=== PATIENT | female | born 1990 | race American Indian/Alaskan Native ===

== ENCOUNTER 2017-07-24 12:54 | Inpatient (IN) | payer MEDICAID ==
[2017-07-24] MEDS ORDERED: SUBLIMAZE IV PRN (13:12)
[2017-07-24] MEDS ORDERED: BRETHINE IVP PRN (13:12)
[2017-07-24] MEDS ORDERED: BRETHINE SUB-Q PRN (13:12)
[2017-07-24] MEDS ORDERED: ePHEDrine SULFATE IV PRN ×2 (13:12→19:10)
[2017-07-24] MEDS ORDERED: MINERAL OIL PO PRN (13:12)
--- NOTE | 2017-07-24 13:21 | History and Physical Report ---
History of Present Illness Date of examination: 07/24/17 (sent from office for delivery) Date of admission: 07/24/17 12:54 Chief complaint: Chief Complaint / Current Status: Patient presents for OB F/U. No complaints....aharris No c/o but thinks she is in early labor. BP too high, went to triage last week. Needs to be delivered for gest HTN. I had to u/s for FHT which were found. History of present illness: EDC Confirmation: 07/27/2017 Gestational Age: 20 weeks Past History : 2 Term Births: 1 Premature Births: 0 Living Children: 1 Para: 1 Elect. Ab: 0 Spont. Ab: 0 Ectopics: 0 # 1 Delivery date: 09/06/2013 Weeks Gestation: 40 Delivery type: Vaginal Hours of labor: 12 Anesthesia type: epidural Delivery location: [facility] Sex: female weight: 7.13 Name: Raisa Past Medical History: Reviewed history from 02/27/2013 and no changes required: Negative Past Medical History Past Surgical History: Reviewed history from 02/27/2013 and no changes required: Negative Past Surgical History Past Medical History Abnormal PAP: negative ALIREZA Exposure: negative Infertility: negative Uterine Anomaly: negative Uterine Surgery (not C/S): negative Other Gynecologic Problems: negative Social Hx: no e/t/d Smoking History: Patient has never smoked. Infection History Hx of STD: none Varicella/Chicken Pox Status: Previous Disease Genetic History Congenital Heart Defect: Mom: no Dad: no Caty Disease: Mom: no Dad: no Thalassemia Mom: no Dad: no Neural Tube Defect Mom: no Dad: no Down's Syndrome Mom: no Dad: no Devon-Sachs Mom: no Dad: no Sickle Cell Disease/Trait Mom: no Dad: no Hemophilia Mom: no Dad: no Muscular Dystrophy Mom: no Dad: no Cystic Fibrosis Mom: no Dad: no Dare Chorea Mom: no Dad: no Mental Retardation Mom: no Dad: no Fragile X Mom: no Dad: no Other Genetic/Chromosomal Disorder Mom: no Dad: no Child w/other defect Mom: no Dad: no Enviromental Exposures Xray Exposure: no Medication, drug, or alcohol use since LMP: no Chemical/Other Exposure: no Exposure to Cat Liter: no Hx of Parvovirus (Fifth Disease): no Occupational Exposure to Children: none Active Medications (reviewed today): MACROBID 100 MG CAPS (NITROFURANTOIN MONOHYD MACRO) 1 bid po VITAMINS () Current Allergies (reviewed today): No known allergies Laboratory Results Routine Urinalysis Leukocytes: 3+ Nitrite: negative Urobilinogen: negative Protein: 2+ pH: 6.5 Blood: 1+ Spec. [place]: 1.015 Ketone: negative Bilirubin: negative Glucose: negative Urine HCG: positive Review of Systems General Denies fever, chills, sweats, anorexia, fatigue, weakness, malaise, weight loss and sleep disorder. Denies nausea, vomiting, headache, swelling of legs, abdominal pain, vaginal discharge, vaginal bleeding and contractions. Denies vaginal discharge, incontinence, dysuria, hematuria, urinary frequency, amenorrhea, menorrhagia, abnormal vaginal bleeding, pelvic pain, genital sores, decreased libido, painful periods, painful sex, urinary urgency, hot flashes, vaginal dryness, vaginal itching and vaginal odor. CV Denies chest pains, palpitations, syncope, dyspnea on exertion, orthopnea, PND and peripheral edema. Resp Denies cough, dyspnea at rest, excessive sputum, hemoptysis, wheezing and pleurisy. GI Denies nausea, vomiting, diarrhea, constipation, change in bowel habits, abdominal pain, melena, hematochezia, jaundice, gas/bloating, indigestion/ heartburn, dysphagia and odynophagia. Endo Denies cold intolerance, heat intolerance, polydipsia, polyphagia, polyuria and unusual weight change. Breast Denies left breast lump, right breast lump, nipple discharge, bloody discharge from nipple, breast pain, abnormal mammogram and breast enlargement. MS Denies back pain, joint pain, joint swelling, muscle cramps, muscle weakness, stiffness, arthritis, sciatica, restless legs, leg pain at night and leg pain with exertion. Derm Denies rash, itching, dryness and suspicious lesions. Neuro Denies paralysis, paresthesias, headache, seizures, tremors, vertigo, transient blindness, frequent falls, frequent headaches and difficulty walking. Psych Denies depression, anxiety, irritability and mood swings. Eyes Denies blurring, diplopia, irritation, discharge, vision loss, eye pain and photophobia. ENT Denies earache, ear discharge, tinnitus, decreased hearing, nasal congestion, nosebleeds, sore throat and hoarseness. Allergy Denies urticaria, allergic rash, hay fever and recurrent infections. Heme Denies abnormal bruising, bleeding and enlarged lymph nodes. PHYSICAL EXAM HEENT: PERRLA, normal conjunctiva, external nose and nasal mucosa normal, oropharynx clear Neck/Thyroid: supple, thyroid normal Skin no significant abnormal lesions or rashes Chest: respiratory effort normal, clear to auscultation Breasts: normal without skin changes or masses CV: regular, normal S1-S2, no murmur, no rub, no gallop Abdomen: normal bowel sounds, soft, nontender, no HSM Musculoskeletal: grossly normal ROM in joints, no joint tenderness or muscle weakness Neuro: grossly normal DTRs, sensation, strength, cranial nerves Extremities: no clubbing, cyanosis, or edema [employer] Exams Vulva/Vagina: No lesions, normal BUS, normal rugae Cervix: No lesions; no cervical motion tenderness Uterus: normal size and position, midline, mobile Fundal Ht: 20 Adnexae: no masses or tenderness Rectovaginal: no masses or tenderness Past History - Obstetrical History Expected Date of Delivery: 07/27/17 Actual Gestation: 39 Week(s) 4 Day(s) : 2 Para: 1 Hx # Term Pregnancies: 1 Number of Living Children: 1 Medications and Allergies Allergies Allergy/AdvReac Type Severity Reaction Status Date / Time No Known Allergies Allergy Verified 07/24/13 11:54 Home Medications Medication Instructions Recorded Confirmed Last Taken Type Acetaminophen/Codeine [Tylenol #3] 1 tab PO Q6H PRN #15 tab 05/21/15 Unknown Rx Cephalexin [Keflex] 500 mg PO Q6HR #20 capsule 05/21/15 Unknown Rx Ibuprofen [Motrin 800 MG tab] 800 mg PO Q8HR PRN #30 tablet 05/21/15 Unknown Rx Active Meds: Active Medications Ephedrine Sulfate (Ephedrine Sulfate) 10 mg IV Q2M PRN PRN Reason: Hypotension Stop: 07/24/17 13:17 Fentanyl (Sublimaze) 100 mcg IV Q2H PRN PRN Reason: Labor Pain Lactated Ringer's (Lactated Ringers) 1,000 mls @ 125 mls/hr IV DIRECT FERNIE Oxytocin/Sodium Chloride (Pitocin/Ns 20 Unit/1000ml Drip) 20 units in 1,000 mls @ 125 mls/hr IV DIRECT FERNIE Oxytocin/Sodium Chloride (Pitocin/Ns 30 Unit/500ml) 30 units in 500 mls @ 1 mls /hr IV TITR FERNIE; 1 MILLIUNITS/MIN PRN Reason: Protocol Oxytocin/Sodium Chloride (Pitocin/Ns 30 Unit/500ml) 30 units in 500 mls @ 4 mls /hr IV TITR FERNIE PRN Reason: Protocol Lidocaine (Xylocaine 2%) 20 ml INFILTRATI ONCE ONE Stop: 07/24/17 13:13 Mineral Oil (Mineral Oil) 30 ml PO QHS PRN PRN Reason: Constipation Terbutaline Sulfate (Brethine) 0.25 mg SUB-Q ONCE PRN PRN Reason: Hyperstimulation/Hypertonicity Stop: 07/24/17 13:13 Terbutaline Sulfate (Brethine) 0.25 mg IVP ONCE PRN PRN Reason: Hyperstimulation/Hypertonicity Stop: 07/24/17 13:13 - Physical Exam Breasts: Positive: deferred Cardiovascular: Regular rate Lungs: Positive: Clear to auscultation, Normal air movement Abdomen: Positive: normal appearance, soft, normal bowel sounds Genitourinary (Female): Positive: normal external genitalia Vagina: Positive: normal moisture Uterus: Positive: normal size, normal contour Anus/Rectum: Positive: normal perianal skin Extremities: Positive: normal, edema Deep Tendon Reflex Grade: Normal +2 - Obstetrical FHR: category 1 Uterine Contraction Monitor Mode: External Cervical Dilatation: 3 Cervical Effacement Percentage: 80 station: -2 Uterine Contraction Pattern: Irregular Uterine Tone Measurement Phase: Resting Uterine Contraction Intensity: Mild Results All other labs normal. Strep Gp B DARSHAN Negative HBsAg Screen Negative Negative *1 Rubella Antibodies, IgG 1.88 index Immune >0.99 *2 Non-immune <0.90 Equivocal 0.90 - 0.99 Immune >0.99 ABO Grouping A *3 Rh Factor Positive *4 Please note: Prior records for this patient's ABO / Rh type are not available for additional verification. Antibody Screen Negative Negative *5 RPR Non Reactive Non Reactive *6 WBC 8.8 x10E3/uL 3.4-10.8 *7 RBC 3.99 x10E6/uL 3.77-5.28 *8 Hemoglobin 11.3 g/dL 11.1-15.9 *9 Hematocrit 34.3 % 34.0-46.6 *10 MCV 86 fL 79-97 *11 MCH 28.3 pg 26.6-33.0 *12 MCHC 32.9 g/dL 31.5-35.7 *13 RDW 14.4 % 12.3-15.4 *14 Platelets 216 x10E3/uL 150-379 *15 Neutrophils 68 % *16 Lymphs 27 % *17 Monocytes 4 % *18 Eos 1 % *19 Basos 0 % *20 ! Immature Cells <No Reported Value> *21 Neutrophils (Absolute) 5.9 x10E3/uL 1.4-7.0 *22 Lymphs (Absolute) 2.4 x10E3/uL 0.7-3.1 *23 Monocytes(Absolute) 0.3 x10E3/uL 0.1-0.9 *24 Eos (Absolute) 0.1 x10E3/uL 0.0-0.4 *25 Baso (Absolute) 0.0 x10E3/uL 0.0-0.2 *26 ! Immature Granulocytes 0 % *27 ! Immature Grans (Abs) 0.0 x10E3/uL 0.0-0.1 *28 ! NRBC <No Reported Value> *29 Hematology Comments: <No Reported Value> *30 Tests: (2) HB Solu + Rflx [facility] (290263) Hemoglobin (Hgb) Solubility Negative Negative *31 Tests: (3) Panel 654541 ([id number]) HIV Screen 4th Generation wRfx Non Reactive Non Reactive *32 Tests: (4) Gest. Diabetes 1-Hr Screen (673572) ! Gestational Diabetes Screen 138 mg/dL 65-139 *33 According to ADA, a glucose threshold of >139 mg/dL after 50-gram load identifies approximately 80% of women with gestational diabetes mellitus, while the sensitivity is further increased to approximately 90% by a threshold of >129 mg/dL. Tests: (5) HCV Ab w/Rflx to Verification (204455) ! HCV Ab <0.1 s/co ratio 0.0-0.9 *34 Tests: (6) Comment: (168257) ! Comment: SPRCS *35 Non reactive HCV antibody screen is consistent with no HCV infection, unless recent infection is suspected or other evidence exists to indicate HCV infection. Assessment and Plan - Patient Problems (1) Gestational hypertension Onset Date: ~07/24/17 Current Visit: Yes Status: Acute Qualifiers: Trimester: third trimester Qualified Code(s): O13.3 - Gestational [ -induced] hypertension without significant proteinuria, third trimester Plan to address problem: Pt sent from OB office for Augmentation of labor SVE 3,80,-2 GBS negative. PIH labs ordered Orders in EMR.
[2017-07-24] MEDS ORDERED: PITOCin/NS 20 UNIT/1000ML DRIP 20 UNITS/1,000 ML BAG IV SCH (14:00)
[2017-07-24] MEDS ORDERED: PITOCin/NS 30 UNIT/500ML 30 UNITS/500 ML BAG IV SCH ×2 (14:00)
[2017-07-24] MEDS ORDERED: XYLOCAINE 2% INFILTRATI ONE (14:00)
--- NOTE | 2017-07-24 14:44 | Progress Note ---
Assessment and Plan - Patient Problems (1) 39 weeks gestation of Current Visit: Yes Status: Acute (2) Gestational hypertension Onset Date: ~07/24/17 Current Visit: Yes Status: Acute Qualifiers: Trimester: third trimester Qualified Code(s): O13.3 - Gestational [ -induced] hypertension without significant proteinuria, third trimester Plan to address problem: -con't with plan of care -awaiting pitocin to be started. -cx change noted -anticipate Subjective - Subjective Date of service: 07/24/17 Principal diagnosis: IUP at 39.4 with active labor 2. PIH Interval history: pt examined and noted to have cervical change since being seen in office earlier today. Pt advised of plan of care to augment labor. All questions were addressed and answered. Patient reports: movement normal, contractions, no new complaints Objective - Vital Signs Vital Signs: Vital Signs - 12hr 07/24/17 07/24/17 07/24/17 13:42 13:46 14:40 Temperature 98.2 F Pulse Rate 101 H 101 H 85 Respiratory 20 Rate Blood Pressure 130/79 133/77 Blood Pressure 130/79 [Left] - Exam FHR: category 1 Cervical Dilatation: 4 (post) Cervical Effacement Percentage: 80 station: -2 Uterine Contraction Pattern: Irregular Uterine Tone Measurement Phase: Resting Uterine Contraction Intensity: Mild
[2017-07-24 14:50] LABS: Hematocrit 34.1 % (30.3-42.9); Mean Corpuscular HGB Conc 32 % (30-34); Mean Corpuscular Hemoglobin 28 pg (28-32); Mean Corpuscular Volume 86 fl (79-97); Platelet Count 292 K/mm3 (140-440); Red Blood Count 3.99 M/mm3 (3.65-5.03); Red Cell Distribution Width 13.7 % (13.2-15.2); White Blood Count 7.5 K/mm3 (4.5-11.0)
[2017-07-24] MEDS: LACTATED RINGERS 1,000 ML IV SCH ×2 (14:51→18:01)
[2017-07-24 15:09] LABS: Alanine Aminotransferase 21 units/L (7-56); Albumin 3.2 g/dL (3.9-5); Alkaline Phosphatase 166 units/L (35-129); Anion Gap 18 mmol/L; BUN/Creatinine Ratio 10; Blood Urea Nitrogen 5 mg/dL (7-17); Calcium 8.8 mg/dL (8.4-10.2); Carbon Dioxide 20 mmol/L (22-30); Chloride 101.8 mmol/L (98-107); Glucose 101 mg/dL (65-100); Potassium 4.1 mmol/L (3.6-5.0); Sodium 136 mmol/L (137-145); Total Protein 6.3 g/dL (6.3-8.2)
--- NOTE | 2017-07-24 17:11 | Progress Note ---
Assessment and Plan - Patient Problems (1) 39 weeks gestation of Current Visit: Yes Status: Acute (2) Gestational hypertension Onset Date: ~07/24/17 Current Visit: Yes Status: Acute Qualifiers: Trimester: third trimester Qualified Code(s): O13.3 - Gestational [ -induced] hypertension without significant proteinuria, third trimester Plan to address problem: -con't with plan of care -cont pitocin. -cx change noted -anticipate -epidural bolus going at this time. Subjective - Subjective Date of service: 07/24/17 Principal diagnosis: IUP at 39.4 with active labor 2. PIH Interval history: Pt c/o painful contractions and desires epidural at this time. She declines IV pain meds but is aware they are ordered. Will AROM after placement of epidural and place internal monitors. Difficult to trace at times due to pt body habitus. Patient reports: movement normal, contractions, no new complaints Objective - Vital Signs Vital Signs: Vital Signs - 12hr 07/24/17 07/24/17 07/24/17 13:42 13:46 14:40 Temperature 98.2 F Pulse Rate 101 H 101 H 85 Respiratory 20 Rate Blood Pressure 130/79 133/77 Blood Pressure 130/79 [Left] 07/24/17 07/24/17 07/24/17 15:10 15:30 15:41 Temperature Pulse Rate 96 H 91 H 93 H Respiratory Rate Blood Pressure 136/78 133/73 127/72 Blood Pressure [Left] 07/24/17 07/24/17 16:10 17:10 Temperature Pulse Rate 93 H 87 Respiratory Rate Blood Pressure 133/78 137/67 Blood Pressure [Left] - Exam FHR: category 1 Cervical Dilatation: 6 Cervical Effacement Percentage: 80 station: -2 Uterine Contraction Pattern: Regular (difficult to trace at times) Uterine Tone Measurement Phase: Resting Uterine Contraction Intensity: Moderate - Labs Labs: Abnormal Labs 07/24/17 13:15 Sodium 136 L Carbon Dioxide 20 L BUN 5 L Creatinine 0.5 L Glucose 101 H Alkaline Phosphatase 166 H Albumin 3.2 L Laboratory Results - last 24 hr 07/24/17 07/24/17 07/24/17 13:15 13:15 13:15 WBC 7.5 RBC 3.99 Hgb 11.0 Hct 34.1 MCV 86 MCH 28 MCHC 32 RDW 13.7 Plt Count 292 Sodium 136 L Potassium 4.1 Chloride 101.8 Carbon Dioxide 20 L Anion Gap 18 BUN 5 L Creatinine 0.5 L Estimated GFR > 60 BUN/Creatinine Ratio 10 Glucose 101 H Calcium 8.8 Total Bilirubin 0.30 AST 19 ALT 21 Alkaline Phosphatase 166 H Total Protein 6.3 Albumin 3.2 L Albumin/Globulin Ratio 1.0 Blood Type A POSITIVE Antibody Screen Negative
[2017-07-24] MEDS ORDERED: ePHEDrine SULFATE ONE (18:00)
[2017-07-24] MEDS ORDERED: NARCAN 2 MG/2 ML IV PRN (19:10)
--- NOTE | 2017-07-24 19:10 | Anesthesia Consultation ---
Anesthesia Consult and Med Hx Date of service: 07/24/17 - Airway Anesthetic Teeth Evaluation: Good ROM Head & Neck: Adequate Mental/Hyoid Distance: Adequate Mallampati Class: Class II Intubation Access Assessment: Probably Good - Pulmonary Exam CTA: Yes - Cardiac Exam Cardiac Exam: RRR - Pre-Operative Health Status ASA Pre-Surgery Classification: ASA2 Proposed Anesthetic Plan: Epidural, Spinal - Pulmonary Hx Asthma: No COPD: No Hx Pneumonia: No - Cardiovascular System Hx Hypertension: Yes (PIH) - Central Nervous System Hx Seizures: No Hx Psychiatric Problems: No - Endocrine Hx Renal Disease: No Hx End Stage Renal Disease: No Hx Hypothyroidism: No Hx Hyperthyroidism: No - Hematic Hx Anemia: No Hx Sickle Cell Disease: No - Other Systems Hx Alcohol Use: No
[2017-07-24] MEDS ORDERED: fentaNYL-BUPIV 2 MCG/ML-0.125% 200 MCG/100 ML BAG EPIDURAL SCH (20:00)
[2017-07-24] MEDS ORDERED: PHENERGAN PO PRN (21:01)
[2017-07-24] MEDS ORDERED: MILK OF MAGNESIA PO PRN (21:01)
[2017-07-24] MEDS ORDERED: DULCOLAX PR PRN (21:01)
[2017-07-24] MEDS ORDERED: LANSINOH TP PRN (21:01)
[2017-07-24] MEDS ORDERED: BENADRYL PO PRN (21:01)
[2017-07-24] MEDS ORDERED: ZOFRAN IV PRN (21:01)
[2017-07-24] MEDS ORDERED: PHENERGAN PR PRN (21:01)
[2017-07-24] MEDS ORDERED: TYLENOL PO PRN (21:01)
[2017-07-24] MEDS ORDERED: TUCKS PAD TP PRN (21:01)
--- NOTE | 2017-07-24 21:07 | Procedure Note ---
OB Delivery Note - Delivery Date of Delivery: 07/24/17 Surgeon: SADAF JORDAN Estimated blood loss: 200cc - Vaginal Delivery presentation: vertex Delivery position: OA (compound hand) Delivery induction: none Delivery augmentation: rupture of membranes, pitocin Delivery monitor: external FHT, external uterine, internal FHT, internal uterine Route of delivery: Delivery placenta: spontaneous Episiotomy: none Delivery laceration: 1st degree (periurethral) Delivery repair: other (none as it was hemostatic) Anesthesia: epidural Delivery comments: Delivery as above w/o complications. No nuchal cord not shoulder dystocia. Infant placed on maternal abdomen. Cord clamped x 2 and cut times one by FOC. Placenta delivered intact. Laceration as above was hemostatic and was not repaired. EBL 200ml. Mother and stable in LDR. - A at 1 minute: 8 at 5 minutes: 9 Infant Gender: Female (6lbs 6oz)
[2017-07-24] MEDS ORDERED: SODIUM CHLORIDE FLUSH SYRINGE 10 ML IV SCH (22:00)
[2017-07-25] MEDS: MOTRIN PO SCH ×3 (00:08→20:55)
[2017-07-25] MEDS ORDERED: BOOSTRIX IM ONE (06:00)
--- NOTE | 2017-07-25 07:47 | Progress Note ---
Assessment and Plan patient doing well, no complaints. afebrile, VSSAF (b/p 131-142/70's), post delivery H&H to be drawn @ 0900, denies s/s anemia, lochia scant. Continue current pathway, anticipate d/c home tomorrow. - Patient Problems (1) (normal spontaneous vaginal delivery) Current Visit: Yes Status: Acute (2) Gestational hypertension Onset Date: ~07/24/17 Current Visit: Yes Status: Acute Qualifiers: Trimester: third trimester Qualified Code(s): O13.3 - Gestational [ -induced] hypertension without significant proteinuria, third trimester Subjective - Subjective Date of service: 07/25/17 Principal diagnosis: day #1 s/p , htn Patient reports: appetite normal, voiding normally, pain well controlled, ambulating normally [place]: doing well, nursing well Objective - Vital Signs Latest vital signs: Vital Signs Temp Pulse Resp BP BP 07/25/17 04:00 98.6 F 81 16 131/76 07/24/17 23:15 98.6 F 81 16 142/74 07/24/17 22:37 103 H 143/69 07/24/17 22:22 93 H 146/70 07/24/17 22:15 87 140/67 07/24/17 21:03 88 150/72 07/24/17 20:12 99 H 145/86 07/24/17 19:41 93 H 137/72 07/24/17 19:10 95 H 149/83 07/24/17 18:41 95 H 171/97 07/24/17 17:41 134 H 128/77 07/24/17 17:10 87 137/67 07/24/17 16:10 93 H 133/78 07/24/17 15:41 93 H 127/72 07/24/17 15:30 91 H 133/73 07/24/17 15:10 96 H 136/78 07/24/17 14:40 85 133/77 07/24/17 13:46 101 H 130/79 07/24/17 13:42 98.2 F 101 H 20 130/79 Intake and Output 07/24/17 07/24/17 07/25/17 15:59 23:59 07:59 Intake Total 5.8 903.833 600 Output Total 2250 Balance 5.8 903.833 -1650 Intake: IV 5.8 403.833 Lactated Ringers 1,000 ml 395.833 @ 125 mls/hr IV DIRECT FERNIE Rx#:[id number] PITOCin/NS 30 UNIT/500ML 5.8 8 30 units In 500 ml @ 4 mls/hr IV TITR FERNIE Rx#: [id number] Oral 200 Intake, Free Water 300 600 Output: Urine 2250 Void 2250 Other: Total, Intake Amount 200 Total, Output Amount 650 # Voids Void 1 Weight 159.211 kg Estimated Blood Loss 200 - Exam Breasts: Present: normal, Cardiovascular: Present: Regular rate Lungs: Present: Normal air movement Abdomen: Present: normal appearance, soft Vulva: both: laceration/episiotomy Uterus: Present: normal, firm, fundal height at umbilicus Extremities: Present: normal - Labs Labs: Abnormal lab results 07/24/17 Range/Units 13:15 Sodium 136 L (137-145) mmol/L Carbon Dioxide 20 L (22-30) mmol/L BUN 5 L (7-17) mg/dL Creatinine 0.5 L (0.7-1.2) mg/dL Glucose 101 H (65-100) mg/dL Alkaline Phosphatase 166 H (35-129) units/L Albumin 3.2 L (3.9-5) g/dL
[2017-07-25 10:06] LABS: Hematocrit 33.9 % (30.3-42.9); Hemoglobin 11.1 gm/dl (10.1-14.3)
--- NOTE | 2017-07-25 10:22 | Event Note ---
Date: 07/25/17 blood pressure noted to be elevated x 2 after rounds this morning, Plan to repeat pre-e lab work and start mag @ 2gm/hr. Dr. Bran consulted. plan discussed with patient and she verbalizes understanding of plan.
[2017-07-25] MEDS: MAGNESIUM SULFATE 40GM/1000ML 40 GM/1,000 ML BAG IV SCH (10:49)
[2017-07-25] MEDS: LACTATED RINGERS 1,000 ML IV SCH ×2 (10:55→23:19)
[2017-07-25 11:40] LABS: Mean Corpuscular HGB Conc 33 % (30-34); Mean Corpuscular Hemoglobin 28 pg (28-32); Mean Corpuscular Volume 85 fl (79-97); Platelet Count 244 K/mm3 (140-440); Red Cell Distribution Width 13.4 % (13.2-15.2); White Blood Count 9.1 K/mm3 (4.5-11.0)
[2017-07-25 12:00] LABS: Alanine Aminotransferase 22 units/L (7-56); Lactate Dehydrogenase 277 units/L (91-180); Uric Acid 3.6 mg/dL (3.5-7.6)
[2017-07-25] MEDS ORDERED: APRESOLINE IV PRN (12:34)
[2017-07-25 13:03] LABS: Bacteria,Urine 1+ /HPF (Negative); Bilirubin,Urine NEG (Negative); Blood,Urine LG (Negative); Ketones,Urine NEG (Negative); Leukocyte Esterase,Urine MOD (Negative); Nitrite,Urine NEG (Negative); Urobilinogen,Urine < 2.0 mg/dL (<2.0)
[2017-07-25 13:05] LABS: RBC,Urine > 182.0 /HPF (0.0-6.0)
[2017-07-25] MEDS: NORCO 5/325 PO PRN (16:35)
--- NOTE | 2017-07-25 17:13 | Progress Note ---
Subjective Date of service: 07/25/17 Principal diagnosis: day #1 s/p , htn Interval history: 1st day after normal vaginal delivery Patient is in the bed, comfortable. Pain is well controlled with pain meds. Has not ambulated due to Mg2SO4 infusion. No residual neurological deficit. No anesthesia complications Objective - Constitutional Vitals: Vital Signs - 12hr 07/25/17 07/25/17 07/25/17 08:15 09:49 10:33 Temperature 97.9 F Pulse Rate 91 H Respiratory 19 Rate Blood Pressure 161/97 156/101 145/90 [Left] 07/25/17 07/25/17 07/25/17 10:55 13:00 15:00 Temperature Pulse Rate 98 H Respiratory Rate Blood Pressure 177/101 142/85 148/85 [Left] - Labs CBC & Chem 7: 07/25/17 11:13 07/25/17 11:13 Labs: Abnormal lab results 07/25/17 07/25/17 Range/Units 11:13 12:16 Creatinine 0.5 L (0.7-1.2) mg/dL Lactate Dehydrogenase 277 H (91-180) units/L Urine WBC (Auto) 15.0 H (0.0-6.0) /HPF
[2017-07-26] MEDS: NORCO 5/325 PO PRN (04:20)
[2017-07-26] MEDS: MAGNESIUM SULFATE 40GM/1000ML 40 GM/1,000 ML BAG IV SCH (05:58)
[2017-07-26] MEDS: MOTRIN PO SCH ×4 (06:00→20:58)
--- NOTE | 2017-07-26 08:11 | Progress Note ---
Assessment and Plan patient resting, denies VALLEJO, blurred vision or epigastric pain. Lochia scant, H& H stable. b/p's mostly 120-140's/70's-80's since mag sulfate started yesterday. Mag d/t come down today around 11am, will consult Dr. Telles for management of htn. Continue current pathway and observation of vitals. - Patient Problems (1) (normal spontaneous vaginal delivery) Current Visit: Yes Status: Acute (2) Pre-eclampsia added to pre-existing hypertension Current Visit: Yes Status: Acute Subjective - Subjective Date of service: 07/26/17 Principal diagnosis: day #2 s/p , pre-e Patient reports: appetite normal, voiding normally, pain well controlled, ambulating normally, no dizzy ambulation, no nauseated [place]: doing well, nursing well Objective - Vital Signs Latest vital signs: Vital Signs Temp Pulse Resp BP 07/26/17 04:00 98.6 F 66 16 120/73 07/26/17 00:00 98.6 F 78 16 121/79 07/25/17 19:30 98.6 F 77 16 136/80 07/25/17 17:20 155/92 07/25/17 16:50 97.9 F 100 H 18 128/85 07/25/17 15:00 148/85 07/25/17 13:00 142/85 07/25/17 10:55 98 H 177/101 07/25/17 10:33 145/90 07/25/17 09:49 156/101 07/25/17 08:15 97.9 F 91 H 19 161/97 Intake and Output 07/25/17 07/26/17 07/26/17 23:59 07:59 15:59 Intake Total 1350 1257.5 Output Total 1600 800 Balance -250 457.5 Intake: IV 930 957.5 Lactated Ringers 1,000 ml 930 @ 75 mls/hr IV DIRECT FERNIE Rx#:[id number] MAGNESIUM SULFATE 40GM/ 957.5 1000ML 40 gm In 1,000 ml @ 2 GM/HR 50 mls/hr IV DIRECT FERNIE Rx#:[id number] Oral 120 Intake, Free Water 300 300 Output: Urine 1600 800 Void 1600 800 Other: Total, Intake Amount 120 Total, Output Amount 800 800 # Voids Void 1 1 - Exam Breasts: Present: normal, Cardiovascular: Present: Regular rate Lungs: Present: Clear to auscultation, Normal air movement Abdomen: Present: normal appearance, soft Vulva: both: laceration/episiotomy Uterus: Present: normal, firm, fundal height at umbilicus Extremities: Present: normal Incision: Present: normal, dry, intact - Labs Labs: Abnormal lab results 07/25/17 07/25/17 07/25/17 Range/Units 11:13 12:16 17:24 Creatinine 0.5 L (0.7-1.2) mg/dL Magnesium 3.50 H (1.7-2.3) mg/dL Lactate Dehydrogenase 277 H (91-180) units/L Urine WBC (Auto) 15.0 H (0.0-6.0) /HPF 07/26/17 07/26/17 Range/Units 02:55 05:50 Creatinine (0.7-1.2) mg/dL Magnesium 4.40 H 4.50 H (1.7-2.3) mg/dL Lactate Dehydrogenase (91-180) units/L Urine WBC (Auto) (0.0-6.0) /HPF
[2017-07-27] MEDS: NORMODYNE PO SCH ×2 (00:41→09:31)
[2017-07-27] MEDS: MOTRIN PO SCH ×3 (05:24→12:00)
--- NOTE | 2017-07-27 06:42 | Discharge Summary ---
Providers - Providers Date of Admission: 07/24/17 12:54 Date of discharge: 07/27/17 (pt agrees with d/c ) Attending physician: MILTON ARNOLD Primary care physician: MILTON ARNOLD Hospitalization Reason for admission: active labor Delivery: Episiotomy: none Laceration: none Other procedures: none complications: other (MGSO4 X 24 hours for elevated BPs; stable @ day of delivery) Discharge diagnosis: IUP at term delivered [place] baby: female Hospital course: uncomplicated vaginal delivery MGSO4 X 24 hours Pt is CHTN and had elevated BPs PP. Pt w/o complaint VSS BP 140-130/70 FF below umb Lochia small Perineum intact H& H stable No s/sx of anemia. Doing well s/p vag delivery Elevated BP P: d/ c today with instructions RTO 1 week for BP check Call with VALLEJO, blurred vision, chest pain. Condition at discharge: Good Disposition: DC-01 TO HOME OR SELFCARE - Discharge Diagnoses (1) Gestational hypertension Status: Acute Qualifiers: Trimester: third trimester Qualified Code(s): O13.3 - Gestational [ -induced] hypertension without significant proteinuria, third trimester Comment: rto 1 week for BP check Plan - Provider Discharge Summary Activity: routine, no sex for 6 weeks, no heavy lifting 4 weeks, no strenuous exercise Diet: routine Instructions: routine Additional instructions: [] Smoking cessation referral if applicable(refer to patient education folder for contact #) [] Refer to [facility] Booklet Call your doctor immediately for: * Fever > 100.5 * Heavy vaginal bleeding ( >1 pad per hour) * Severe persistent headache * Shortness of breath * Reddened, hot, painful area to leg or breast * Drainage or odor from incision. * Keep incision clean and dry at all times and follow doctor's instructions regarding bathing/showering - Follow up plan Follow up: MILTON ARNOLD MD [Primary Care Provider] - 7 Days (Congratulations! Please call [phone] to schedule your blood pressure check in 1 week. Call with headache unrelieved with Tylenol, blurred vision, chest pain. Take medications as prescribed. Call with concerns. )
--- NOTE | 2017-07-27 07:38 | Event Note ---
Date: 07/27/17 (consulted with ) RX written for Labetalol @ d/c Instructions reinforced to make appt in 1 week for BP check, call with VALLEJO, blurred vision, chest pain. All questions addressed.
[2017-07-27] MEDS: NORCO 5/325 PO PRN (17:45)
[2017-07-27 18:11] VITALS: BP 163/93
== END 2017-07-27 19:00 | disposition home or self-care (01) | DRG 775 ==
LOC: LD 12:54 → OB 23:02
PROVIDERS: ADMIT Obstetrics & Gynecology; ATTEND Obstetrics & Gynecology
PROC: 10E0XZZ Delivery of Products of Conception, External Approach (ICD-10-PCS; principal; 2017-07-24)
PROC: 0HQ9XZZ Repair Perineum Skin, External Approach (ICD-10-PCS; 2017-07-24)
PROC: 3E0R3BZ Introduction of Anesthetic Agent into Spinal Canal, Percutaneous Approach (ICD-10-PCS; 2017-07-24)
PROC: 00HU33Z Insertion of Infusion Device into Spinal Canal, Percutaneous Approach (ICD-10-PCS; 2017-07-24)
DX: O11.4 Pre-existing hypertension with pre-eclampsia, complicating childbirth (principal); Z3A.39 39 weeks gestation of pregnancy; Z37.0 Single live birth; O71.82 Other specified trauma to perineum and vulva
CPT/HCPCS: 36415; 80053; 81001; 82565; 83615; 83735; 84450; 84460; 84550; 85014; 85018; 85027; 86592; 86850; 86900; 86901; 88307; 99211; G0463; J0360; J2590; J3475; J7120

== ENCOUNTER 2017-07-28 21:21 | Emergency (ER) | payer MEDICAID ==
[2017-07-28 21:58] LABS: Basophils % (Auto) 0.7 % (0.0-1.8); Eosinophils % (Auto) 4.7 % (0.0-4.3); Hematocrit 35.1 % (30.3-42.9); Hemoglobin 11.2 gm/dl (10.1-14.3); Mean Corpuscular HGB Conc 32 % (30-34); Mean Corpuscular Hemoglobin 28 pg (28-32); Mean Corpuscular Volume 86 fl (79-97); Platelet Count 307 K/mm3 (140-440); Red Blood Count 4.08 M/mm3 (3.65-5.03); Red Cell Distribution Width 13.9 % (13.2-15.2); White Blood Count 7.6 K/mm3 (4.5-11.0)
[2017-07-28 22:58] LABS: Alanine Aminotransferase 28 units/L (7-56); Albumin 3.4 g/dL (3.9-5); Albumin/Globulin Ratio 1.2 %; Alkaline Phosphatase 120 units/L (35-129); Anion Gap 19 mmol/L; BUN/Creatinine Ratio 15; Blood Urea Nitrogen 9 mg/dL (7-17); Calcium 9.3 mg/dL (8.4-10.2); Carbon Dioxide 24 mmol/L (22-30); Chloride 100.9 mmol/L (98-107); Glucose 91 mg/dL (65-100); Potassium 4.7 mmol/L (3.6-5.0); Sodium 139 mmol/L (137-145); Total Protein 6.3 g/dL (6.3-8.2)
[2017-07-29] MEDS ORDERED: APRESOLINE IV ONE (01:01)
[2017-07-29] MEDS ORDERED: TORADOL IV ONE (01:02)
--- NOTE | 2017-07-29 01:08 | Emergency Department Report ---
ED Headache HPI - General Chief Complaint: High BP Stated Complaint: HTN; H/A Time Seen by Provider: 07/29/17 01:01 Source: patient, family Exam Limitations: no limitations - History of Present Illness Initial Comments: 27 YO FEMALE 4 DAYS POST- C/O FRONTAL HEADACHE SINCE DISCHARGE FROM THE HOSPITAL YESTERDAY. HEADACHE RADIATES TO RIGHT SIDE OF HER NECK. PT HAD PREECLAMSIA DURING LAST WEEK OF AND DELIVERED VAGINALLY. Timing/Duration: 24 hours Quality: moderate Head Injury Location: frontal Recent Head Trauma: no recent headache/trauma Modifying Factors: improves with: exposure to light, movement Associated Symptoms: denies symptoms. denies: nausea/vomiting, nasal congestion , stiff neck Allergies/Adverse Reactions: Allergies No Known Allergies Allergy (Verified 07/24/13 11:54) Home Medications: Ambulatory Orders Acetaminophen/Codeine [Tylenol #3] 1 tab PO Q6H PRN #15 tab 05/21/15 Cephalexin [Keflex] 500 mg PO Q6HR #20 capsule 05/21/15 Ibuprofen [Motrin 800 MG tab] 800 mg PO Q8HR PRN #30 tablet 05/21/15 Ibuprofen [Motrin 800 MG tab] 800 mg PO TID PRN #30 tablet 07/27/17 Labetalol [Normodyne TAB] 200 mg PO BID #60 tablet 07/27/17 ED Review of Systems ROS: Stated complaint: HTN; H/A Other details as noted in HPI Constitutional: denies: chills, fever Eyes: denies: eye pain, eye discharge, vision change ENT: denies: ear pain, throat pain Respiratory: denies: cough, shortness of breath, wheezing Cardiovascular: denies: chest pain, palpitations Endocrine: no symptoms reported Gastrointestinal: denies: abdominal pain, nausea, vomiting, diarrhea Genitourinary: denies: urgency, dysuria, discharge Musculoskeletal: denies: back pain, joint swelling, arthralgia Skin: denies: rash, lesions Neurological: headache Psychiatric: denies: anxiety, depression Hematological/Lymphatic: denies: easy bleeding, easy bruising ED Past Medical Hx - Past Medical History Previous Medical History?: Yes Hx Hypertension: Yes (PIH) Hx Congestive Heart Failure: No Hx Diabetes: No Hx Deep Vein Thrombosis: No Hx Renal Disease: No Hx Sickle Cell Disease: No Hx Seizures: No Hx Asthma: No Hx COPD: No Hx HIV: No Additional medical history: preeclampsia - Surgical History Past Surgical History?: No - Social History Smoking Status: Never Smoker Substance Use Type: None - Medications Home Medications: Home Medications Medication Instructions Recorded Confirmed Last Taken Type Acetaminophen/Codeine [Tylenol #3] 1 tab PO Q6H PRN #15 tab 05/21/15 07/26/17 Unknown Rx Cephalexin [Keflex] 500 mg PO Q6HR #20 capsule 05/21/15 07/26/17 Unknown Rx Ibuprofen [Motrin 800 MG tab] 800 mg PO Q8HR PRN #30 tablet 05/21/15 07/26/17 Unknown Rx Ibuprofen [Motrin 800 MG tab] 800 mg PO TID PRN #30 tablet 07/27/17 Unknown Rx Labetalol [Normodyne TAB] 200 mg PO BID #60 tablet 07/27/17 Unknown Rx ED Physical Exam - General Limitations: No Limitations General appearance: alert, in no apparent distress - Head Head exam: Present: atraumatic, normocephalic - Eye Eye exam: Present: normal appearance, EOMI - ENT ENT exam: Present: mucous membranes moist - Neck Neck exam: Present: normal inspection, full ROM. Absent: tenderness - Respiratory Respiratory exam: Present: normal lung sounds bilaterally. Absent: respiratory distress, wheezes, accessory muscle use, decreased breath sounds - Cardiovascular Cardiovascular Exam: Present: regular rate, normal rhythm. Absent: systolic murmur, diastolic murmur, rubs, gallop - GI/Abdominal GI/Abdominal exam: Present: soft, normal bowel sounds, other (LARGE CENTRIPITAL FAT). Absent: distended - Extremities Exam Extremities exam: Present: normal inspection - Back Exam Back exam: Present: normal inspection - Neurological Exam Neurological exam: Present: alert, oriented X3 - Psychiatric Psychiatric exam: Present: normal affect, normal mood - Skin Skin exam: Present: warm, dry, intact, normal color. Absent: rash ED Course Vital Signs 07/28/17 07/28/17 07/28/17 21:27 23:18 23:23 Temperature 98.2 F Pulse Rate 73 67 Respiratory 18 25 H 18 Rate Blood Pressure 182/108 O2 Sat by Pulse 100 99 Oximetry 07/29/17 07/29/17 07/29/17 01:17 01:26 01:28 Temperature Pulse Rate 93 H 91 H Respiratory 18 24 24 Rate Blood Pressure 183/100 183/100 O2 Sat by Pulse Oximetry 07/29/17 07/29/17 07/29/17 01:30 01:32 01:34 Temperature Pulse Rate 93 H 87 90 Respiratory 16 24 18 Rate Blood Pressure 158/86 158/86 158/86 O2 Sat by Pulse Oximetry 07/29/17 07/29/17 07/29/17 01:36 02:04 02:06 Temperature Pulse Rate 105 H 95 H 86 Respiratory 18 13 13 Rate Blood Pressure 158/86 158/86 149/88 O2 Sat by Pulse Oximetry 07/29/17 07/29/17 07/29/17 02:08 02:09 02:11 Temperature Pulse Rate 88 81 98 H Respiratory 17 13 15 Rate Blood Pressure O2 Sat by Pulse Oximetry 07/29/17 07/29/17 07/29/17 02:13 02:15 02:17 Temperature Pulse Rate 87 87 91 H Respiratory 20 24 13 Rate Blood Pressure O2 Sat by Pulse Oximetry 07/29/17 07/29/17 07/29/17 02:19 02:20 02:21 Temperature Pulse Rate 89 87 93 H Respiratory 20 13 15 Rate Blood Pressure 149/88 146/78 146/78 O2 Sat by Pulse Oximetry 07/29/17 07/29/17 07/29/17 02:23 02:25 02:27 Temperature Pulse Rate 85 87 91 H Respiratory 16 19 22 Rate Blood Pressure 146/78 146/78 146/78 O2 Sat by Pulse Oximetry 07/29/17 07/29/17 07/29/17 02:29 02:31 02:33 Temperature Pulse Rate 89 87 89 Respiratory 23 21 15 Rate Blood Pressure 146/78 146/78 146/78 O2 Sat by Pulse Oximetry 07/29/17 07/29/17 07/29/17 02:35 02:36 02:37 Temperature Pulse Rate 96 H 94 H 90 Respiratory 20 22 18 Rate Blood Pressure 146/78 146/78 146/78 O2 Sat by Pulse Oximetry 07/29/17 07/29/17 07/29/17 02:39 02:40 02:41 Temperature Pulse Rate 87 87 85 Respiratory 16 14 21 Rate Blood Pressure 146/78 141/80 141/80 O2 Sat by Pulse Oximetry 07/29/17 07/29/17 07/29/17 02:43 02:45 02:47 Temperature Pulse Rate 88 83 81 Respiratory 23 17 21 Rate Blood Pressure 141/80 141/80 141/80 O2 Sat by Pulse Oximetry 07/29/17 07/29/17 07/29/17 02:49 02:51 02:53 Temperature Pulse Rate 83 93 H 75 Respiratory 21 18 18 Rate Blood Pressure 141/80 141/80 146/78 O2 Sat by Pulse Oximetry 07/29/17 07/29/17 07/29/17 02:55 02:57 02:59 Temperature Pulse Rate 79 79 82 Respiratory 26 H 22 23 Rate Blood Pressure 146/78 146/78 146/78 O2 Sat by Pulse Oximetry 07/29/17 07/29/17 07/29/17 03:00 03:01 03:03 Temperature Pulse Rate 83 78 72 Respiratory 15 22 21 Rate Blood Pressure 155/79 155/79 155/79 O2 Sat by Pulse Oximetry 07/29/17 07/29/17 07/29/17 03:05 03:07 03:09 Temperature Pulse Rate 73 79 82 Respiratory 20 24 22 Rate Blood Pressure 155/79 155/79 155/79 O2 Sat by Pulse Oximetry ED Medical Decision Making - Lab Data Result diagrams: 07/28/17 21:47 07/28/17 21:47 - Radiology Data Radiology results: report reviewed (CT HEAD: NO ACAUTE FINDINGS) Critical care attestation.: If time is entered above; I have spent that time in minutes in the direct care of this critically ill patient, excluding procedure time. ED Disposition Clinical Impression: Hypertension Qualifiers: Hypertension type: other secondary hypertension Qualified Code(s): I15.8 - Other secondary hypertension Headache Qualifiers: Headache type: unspecified Headache chronicity pattern: acute headache Intractability: not intractable Qualified Code(s): R51 - Headache Disposition: DC-01 TO HOME OR SELFCARE Is pt being admited?: No Does the pt Need Aspirin: No Condition: Stable Instructions: Hypertension (ED) Additional Instructions: PLEASE SEE YOUR DR TODAY REGARDING YOUR BLOOD PRESSURE AND HEADACHE
--- NOTE | 2017-07-29 02:20 | Cat Scan Report ---
FINAL REPORT EXAM: CT HEAD/BRAIN WO CON HISTORY: HEADACHE,ELEVATED BP, X4DAYS TECHNIQUE: Routine axial imaging was obtained of the brain without IV contrast. FINDINGS: There are no attenuation abnormalities. The ventricular system is appropriate in size and is symmetric. The basal cisterns appear normal. The visualized sinuses are clear. The mastoid air cells are well pneumatized. The calvarium appears intact. IMPRESSION: Within normal limits.
[2017-07-29 02:49] LABS: Bilirubin,Urine NEG (Negative); Blood,Urine MOD (Negative); Ketones,Urine NEG (Negative); Leukocyte Esterase,Urine NEG (Negative); Nitrite,Urine NEG (Negative); Protein,Urine <15 mg/dL mg/dL (Negative); Urobilinogen,Urine < 2.0 mg/dL (<2.0)
[2017-07-29 03:13] VITALS: BP 155/79
== END 2017-07-29 03:35 | disposition home or self-care (01) ==
LOC: ED 21:21
DX: I10 Essential (primary) hypertension (principal); R51 Headache
CPT/HCPCS: 36415; 70450; 80053; 81001; 85025; 96374; 96375; 99284; J0360; J1885

== ENCOUNTER 2017-07-31 12:49 | Day surgery (SDC) | payer MEDICAID ==
[2017-07-31 13:29] VITALS: BP 150/90
--- NOTE | 2017-07-31 14:16 | Anesthesia Consultation ---
Anesthesia Consult and Med Hx Date of service: 07/31/17 - Airway Anesthetic Teeth Evaluation: Good ROM Head & Neck: Adequate Mental/Hyoid Distance: Adequate Mallampati Class: Class II Intubation Access Assessment: Good - Pulmonary Exam CTA: Yes - Cardiac Exam Cardiac Exam: No Murmur - Pre-Operative Health Status ASA Pre-Surgery Classification: ASA2 Proposed Anesthetic Plan: Epidural - Pulmonary Hx Smoking: No Hx Asthma: No COPD: No Hx Pneumonia: No Hx Sleep Apnea: No (EVE PRE SCREEN HIGH RISK) - Cardiovascular System Hx Hypertension: Yes - Central Nervous System Hx Seizures: No Hx Psychiatric Problems: No - Endocrine Hx Renal Disease: No Hx End Stage Renal Disease: No Hx Hypothyroidism: No Hx Hyperthyroidism: No - Hematic Hx Anemia: No Hx Sickle Cell Disease: No - Other Systems Hx Alcohol Use: No Hx Cancer: No
--- NOTE | 2017-07-31 14:20 | Short Stay Summary ---
Short Stay Documentation Date of service: 07/31/17 - History Past Medical History: hypertension Past Surgical History: No surgical history Social history: - Allergies and Medications Current Medications: Allergies No Known Allergies Allergy (Verified 07/24/13 11:54) Home Medications Medication Instructions Recorded Confirmed Last Taken Type Ibuprofen [Motrin 800 MG tab] 800 mg PO TID PRN #30 tablet 07/27/17 07/31/1709/03 Rx Labetalol [Normodyne TAB] 200 mg PO BID #60 tablet 07/27/17 07/31/17 07/31/17 Rx - Physical exam General appearance: no acute distress, well-nourished, obese Integumentary: no rash, no growths, no abnormal pigmentation HEENT: Atraumatic, PERRLA, EOMI, Mucous membr. moist/pink Lungs: Clear to auscultation, Normal air movement Breasts: deferred Heart: Regular rate, Normal S1, Normal S2, No murmurs Gastrointestinal: normal, normoactive bowel sounds Female Genitourinary: deferred Rectal Exam: deferred Extremities: no ischemia, pulses intact, pulses symmetrical, No edema, normal temperature, normal color, Full ROM Neurological: Normal gait, Normal speech, Strength at 5/5 X4 ext, Normal tone, Sensation intact, Cranial nerves 3-12 NL, Reflexes 2+ - Brief post op/procedure progress note Date of procedure: 07/31/17 Pre-op diagnosis: Post spinal headache Post-op diagnosis: same Procedure: Epidural blood patch Anesthesia: epidural Surgeon: ALEX LUCIO Estimated blood loss: none Pathology: none Condition: stable - Disposition Condition at discharge: Good Disposition: DC-01 TO HOME OR SELFCARE Short Stay Discharge Plan Follow up with: PRIMARY CARE, [Primary Care Provider] - 7 Days
--- NOTE | 2017-07-31 16:08 | History and Physical Report ---
SUBJECTIVE: Post-spinal headache. HISTORY OF PRESENT ILLNESS: The patient is status post vaginal delivery, which was done on 07/24/2017. The patient received an epidural anesthesia for this delivery. The patient had her baby on 07/24/2017 and she complained that 2 days after she had her epidural, she started experiencing frontal headaches. The headache would come whenever she would sit up or stand and would subside when she lay on her bed. The patient was examined by Dr. Bran and she sent her here for epidural blood patch. PROCEDURE: After written informed consent was signed, the patient was made to sit up and the lumbar area was prepped and draped with Betadine solution. A 2 mL of 1% lidocaine was infiltrated on the L4-L5 interspace and an #18-gauge needle was used to identify the epidural space with loss of resistance technique. Once the epidural space was identified, we injected 20 mL of patient's blood, which was drawn from her right antecubital fossa in the epidural space. The patient was made to lay down after her procedure and was there for about 30 minutes before she was ready to go home. When the patient left to go home, she had very minimal headache. PLAN: 1. The patient has been asked to have bed rest at home. 2. I have asked the patient to drink a lot of fluids p.o. 3. I have asked the patient not to lift anything heavy for the next couple of days and do the heating pad in the back where the epidural was done. JOB# [id number] ANTONINO/KENNY
== END 2017-07-31 14:40 | disposition home or self-care (01) ==
LOC: OR 12:49
PROVIDERS: ATTEND Anesthesiology Pain Medicine
DX: G97.1 Other reaction to spinal and lumbar puncture (principal); I10 Essential (primary) hypertension; Z79.899 Other long term (current) drug therapy
CPT/HCPCS: 62273

== ENCOUNTER 2018-06-24 12:33 | Outpatient (CLI) | payer MEDICAID ==
[2018-06-24] MEDS ORDERED: LACTATED RINGERS 1,000 ML IV SCH (13:00)
[2018-06-24 13:47] LABS: Hematocrit 33.3 % (30.3-42.9); Hemoglobin 11.4 gm/dl (10.1-14.3); Mean Corpuscular HGB Conc 34 % (30-34); Mean Corpuscular Hemoglobin 30 pg (28-32); Mean Corpuscular Volume 86 fl (79-97); Platelet Count 208 K/mm3 (140-440); Red Blood Count 3.85 M/mm3 (3.65-5.03); Red Cell Distribution Width 13.9 % (13.2-15.2)
[2018-06-24 13:57] LABS: Bilirubin,Urine NEG (Negative); Color,Urine Yellow (Yellow)
[2018-06-24 13:58] LABS: Blood,Urine NEG (Negative); Mucus,Urine FEW /HPF; Protein,Urine <15 mg/dL mg/dL (Negative); Urobilinogen,Urine < 2.0 mg/dL (<2.0); WBC,Urine < 1.0 /HPF (0.0-6.0)
[2018-06-24 14:06] LABS: Alanine Aminotransferase 7 units/L (7-56); Uric Acid 3.3 mg/dL (3.5-7.6)
[2018-06-24 14:40] LABS: Lipase 16 units/L (13-60)
--- NOTE | 2018-06-24 14:47 | Ultrasound Report ---
FINAL REPORT PROCEDURE: US ABDOMEN COMPLETE TECHNIQUE: Real-time sonography in multiple planes of the abdomen was performed with image documentation. CPT 23260 HISTORY: RUQ pain in COMPARISON: No prior studies are available for comparison. FINDINGS: Liver: Normal size and echotexture with no evidence of cystic or solid mass lesions. Gallbladder: Gallstones are present. No gallbladder wall thickening. No sonographic Luong sign. Intrahepatic bile ducts: Normal caliber . Extrahepatic bile ducts: Common bile duct measures 3 millimeters in caliber. Pancreas: Not well-visualized. Aorta: Visualized portions appear normal. IVC: Visualized portions appear normal. RIGHT kidney: Normal echotexture. No focal renal mass, calculus, or hydronephrosis. Length: 13.0cm. LEFT kidney: Normal echotexture. No focal renal mass, calculus, or hydronephrosis . Length: 14.2cm. Spleen: Normal size and echotexture. No focal lesions. Intraperitoneal fluid: None . Other: None . IMPRESSION: Cholelithiasis. No sonographic evidence of cholecystitis.
[2018-06-24 15:00] VITALS: BP 140/67
== END 2018-06-24 15:13 | disposition home or self-care (01) ==
LOC: TRG 12:33
PROVIDERS: ATTEND Obstetrics & Gynecology
DX: O47.02 False labor before 37 completed weeks of gestation, second trimester (principal); O99.612 Diseases of the digestive system complicating pregnancy, second trimester; K80.20 Calculus of gallbladder without cholecystitis without obstruction; Z3A.23 23 weeks gestation of pregnancy
CPT/HCPCS: 36415; 59025; 76700; 81001; 82150; 82565; 83615; 83690; 84450; 84460; 84550; 85027

== ENCOUNTER 2020-02-03 15:18 | Outpatient (CLI) | payer OTHER ==
[2020-02-03 17:39] LABS: Hematocrit 35.6 % (30.3-42.9); Mean Corpuscular HGB Conc 34 % (30-34); Mean Corpuscular Volume 87 fl (79-97); Platelet Count 202 K/mm3 (140-440); Red Cell Distribution Width 13.9 % (13.2-15.2)
[2020-02-03 17:45] VITALS: BP 127/82
[2020-02-03 17:52] LABS: Alanine Aminotransferase 10 units/L (7-56)
--- NOTE | 2020-02-03 17:54 | Event Note ---
Date: 02/03/20 Blood pressure and labs are normal. Will d/c home at this time. Pt has f/u in office in one week.
== END 2020-02-03 18:20 | disposition home or self-care (01) ==
LOC: TRG 15:18 → APU 15:19 → TRG 18:20
PROVIDERS: ATTEND Obstetrics & Gynecology
DX: O13.3 Gestational [pregnancy-induced] hypertension without significant proteinuria, third trimester (principal); Z3A.33 33 weeks gestation of pregnancy
CPT/HCPCS: 36415; 59025; 82565; 83615; 84450; 84460; 84550; 85027

== ENCOUNTER 2020-02-10 17:30 | Inpatient (IN) | payer OTHER ==
--- NOTE | 2020-02-10 20:28 | History and Physical Report ---
History of Present Illness Date of examination: 02/11/20 History of present illness: Patient presented to triage with complaints of regular contractions. Initial cervical exam by RN was 3 cm. Patient ambulated and repeat exam was without change but patient did have a category 2 heart tone tracing with some areas of heart decelerations and decision was made to keep patient Menstrual History Regularity: regular Menses every: 30 days Duration: 3-5 LMP: 04/18/2019 LMP reliability: month known LMP character: normal test type: urine test BC at conception: none EDC Confirmation: 02/07/2020 Past History : 4 Term Births: 2 Premature Births: 1 Living Children: 3 Para: 3 Aborta: 0 Elect. Ab: 0 Spont. Ab: 0 Ectopics: 0 # 1 Delivery date: 09/06/2013 Weeks Gestation: 40 Delivery type: Vaginal Hours of labor: 12 Anesthesia type: epidural Delivery location: [facility] Sex: female weight: 7.13 Name: Raisa # 2 Delivery date: 07/24/2017 Weeks Gestation: 39.4 Delivery type: Vaginal Anesthesia type: epidural Delivery location: [facility] Infant Sex: female weight: 6.38 Name: Anh Comments: GESTATIONAL HYPERTENSION # 3 Delivery date: 09/08/2018 Weeks Gestation: 34+1 Delivery type: Vaginal Anesthesia type: epidural Delivery location: [facility] Sex: male weight: 4.44 Name: Oleksandr Arthur Comments: IOL for intrauterine growth restriction, pre- eclampsia/eclampsia Past Medical History Abnormal PAP: negative ALIREZA Exposure: negative Infertility: negative Uterine Anomaly: negative Uterine Surgery (not C/S): negative Other Gynecologic Problems: negative Social Hx: no e/t/d Smoking History: Patient has never smoked. Infection History Hx of STD: chlamydia HIV Risk Eval: low risk Hepatitis B Risk Eval: low risk Varicella/Chicken Pox Status: Previous Disease Genetic History Congenital Heart Defect: Mom: no Dad: no Caty Disease: Mom: no Dad: no Thalassemia Mom: no Dad: no Neural Tube Defect Mom: no Dad: no Down's Syndrome Mom: no Dad: no Devon-Sachs Mom: no Dad: no Sickle Cell Disease/Trait Mom: no Dad: no Hemophilia Mom: no Dad: no Muscular Dystrophy Mom: no Dad: no Cystic Fibrosis Mom: no Dad: no [place] Chorea Mom: no Dad: no Mental Retardation Mom: no Dad: no Fragile X Mom: no Dad: no Other Genetic/Chromosomal Disorder Mom: no Dad: no Child w/other defect Mom: no Dad: no Enviromental Exposures Xray Exposure: no Medication, drug, or alcohol use since LMP: no Chemical/Other Exposure: no Exposure to Cat Liter: no Hx of Parvovirus (Fifth Disease): no Occupational Exposure to Children: none Current Allergies (reviewed today): No known allergies Past History Past Medical History: other (SEE HPI) Past Surgical History: other (SEE HPI) [employer] History: chlamydia (SEE HPI), other Family/Genetic History: other (SEE HPI) Social history: full code, other (SEE HPI) - Obstetrical History Expected Date of Delivery: 02/07/20 Actual Gestation: 40 Week(s) 4 Day(s) : 4 Para: 3 Hx # Term Pregnancies: 2 Number of Pregnancies: 1 Spontaneous Abortions: 0 Induced : 0 Number of Living Children: 3 Medications and Allergies Allergies Allergy/AdvReac Type Severity Reaction Status Date / Time No Known Allergies Allergy Verified 08/31/18 12:31 Home Medications Medication Instructions Recorded Confirmed Last Taken Type Multivitamin Tablet 1 tab PO QDAY 06/24/18 02/10/20 1 Day Ago History ~02/09/20 - Vital Signs Vital signs: Vital Signs Temp Resp 97.9 F 18 02/10/20 17:45 02/10/20 17:45 Temp Pulse Resp BP Pulse Ox 97.9 F 110 H 18 131/79 02/10/20 17:45 02/10/20 17:50 02/10/20 17:45 02/10/20 17:50 - Physical Exam Breasts: Positive: deferred Cardiovascular: Regular rate Lungs: Positive: Normal air movement Abdomen: Positive: other (obese) Cervix: Positive: other (Per RN) Results Result Diagrams: 02/10/20 20:45 All other labs normal. Assessment and Plan - Patient Problems (1) Post-term , 40-42 weeks of gestation Current Visit: Yes Status: Acute Plan to address problem: Will admit continue to watch tracing will start low-dose Pitocin tonight. (2) Transient elevated blood pressure Current Visit: No Status: Acute (3) BMI 50.0-59.9, adult Current Visit: No Status: Chronic
[2020-02-10] MEDS ORDERED: TERBUTALINE 1 MG/1 ML INJ SUB-Q PRN (20:35)
[2020-02-10] MEDS ORDERED: BUTORPHANOL 2 MG/1 ML INJ IV PRN (20:35)
[2020-02-10] MEDS ORDERED: ePHEDrine SULFATE 50 MG/1 ML INJ IV PRN (20:35)
[2020-02-10] MEDS ORDERED: LIDOCAINE (2%) 20 MG/1 ML VIAL 20 ML MDV INFILTRATI ONE (20:35)
[2020-02-10] MEDS ORDERED: PROMETHAZINE 25 MG TAB PO PRN (20:35)
[2020-02-10] MEDS ORDERED: TERBUTALINE 1 MG/1 ML INJ IVP PRN (20:35)
[2020-02-10] MEDS ORDERED: LACTATED RINGERS 1,000 ML IV SCH (21:00)
[2020-02-10] MEDS ORDERED: OXYTOCIN DRIP 30 UNITS/500 ML BAG IV SCH (21:00)
[2020-02-10 21:06] LABS: Hematocrit 33.8 % (30.3-42.9); Hemoglobin 11.4 gm/dl (10.1-14.3); Mean Corpuscular HGB Conc 34 % (30-34); Mean Corpuscular Volume 87 fl (79-97); Platelet Count 185 K/mm3 (140-440); Red Blood Count 3.87 M/mm3 (3.65-5.03); Red Cell Distribution Width 13.7 % (13.2-15.2)
[2020-02-11] MEDS ORDERED: fentaNYL-BUPIV 2 MCG/ML-0.125% 0 MCG/0 ML BAG EPIDURAL ONE (00:42)
[2020-02-11] MEDS ORDERED: DEXMEDETOMIDINE 200 MCG/2 ML VIAL IV ONE (00:42)
[2020-02-11] MEDS: OXYTOCIN 20 UNIT/1000ML DRIP 20 UNITS/1,000 ML BAG IV SCH ×2 (01:11→02:05)
[2020-02-11] MEDS ORDERED: LIDOCAINE (2%) 20 MG/1 ML VIAL 20 ML MDV INFILTRATI ONE (01:15)
--- NOTE | 2020-02-11 02:39 | Procedure Note ---
OB Delivery Note - Delivery Date of Delivery: 02/11/20 Surgeon: MILTON ARNOLD Estimated blood loss: 500cc - Vaginal Delivery presentation: vertex Intrapartum events: precipitous labor- <3hr Delivery induction: oxytocin Delivery monitor: external FHT Route of delivery: Delivery placenta: spontaneous Episiotomy: none Delivery laceration: 2nd degree Delivery repair: vicryl Anesthesia: local, intravenous Delivery comments: Patient with precipitous delivery. Discussed with patient's nurse approximately 1130 patient regular contractions on 1 milliunit of Pitocin with without decelerations on heart tracing. Received a call from midnight will report the patient persists up to the delivered after having a cervical check of 5 cm of spontaneous rupture of membranes. Arrived after delivery of the and the placenta. Patient did have a midline vaginal perineal laceration repaired with 3-0 Vicryl under local anesthesia. - Infant A at 1 minute: 8 at 5 minutes: 9 Infant Gender: Male (Weight 7 pounds 7 ounces)
[2020-02-11] MEDS ORDERED: diphenhydrAMINE 25 MG CAP PO PRN (03:45)
[2020-02-11] MEDS ORDERED: PROMETHAZINE 25 MG TAB PO PRN (03:45)
[2020-02-11] MEDS ORDERED: LANOLIN/ZINC/DIMETHICONE (LANSINOH) 7 GM TP PRN (03:45)
[2020-02-11] MEDS ORDERED: ACETAMINOPHEN 325 MG TAB PO PRN (03:45)
[2020-02-11] MEDS ORDERED: MAGNESIUM HYDROXIDE (MOM) ORAL LIQD UDC PO PRN (03:45)
[2020-02-11] MEDS ORDERED: WITCH HAZEL/ GLYCERIN PAD TP PRN (03:45)
[2020-02-11] MEDS ORDERED: oxyCODONE /ACETAMINOPHEN 5-325MG TAB PO PRN (03:45)
[2020-02-11] MEDS: IBUPROFEN 600 MG TAB PO SCH ×2 (03:54→11:38)
--- NOTE | 2020-02-11 08:14 | Event Note ---
Date: 02/11/20 <8hrs post , vssaf, patient doing well, no complaints or concerns. continue routine care.
[2020-02-11] MEDS: DOCUSATE SODIUM 100 MG CAP PO SCH ×2 (11:38→22:28)
[2020-02-11] MEDS: PRENATAL VIT27-FE FUMARATE-FOLIC ACID VIT TAB PO SCH (11:38)
[2020-02-11 16:16] LABS: Hematocrit 33.9 % (30.3-42.9); Hemoglobin 11.2 gm/dl (10.1-14.3)
[2020-02-12] MEDS: IBUPROFEN 600 MG TAB PO SCH ×3 (00:29→12:29)
--- NOTE | 2020-02-12 07:48 | Discharge Summary ---
Providers - Providers Date of Admission: 02/10/20 18:05 Date of discharge: 02/12/20 (Pt stable for home) Attending physician: MILTON ARNOLD 02/11/20 03:45 Consult to Lifter/Driver [CONS] Routine Reason For Exam: assistance with , SNS Primary care physician: MILTON ARNOLD Hospitalization Delivery: Episiotomy: none Laceration: 2nd degree Incision: normal Other procedures: none complications: none Discharge diagnosis: IUP at term delivered baby: male Hospital course: S: Doing well. Ambulating, voiding, passing flatus without difficulty. BC: BTL. States signed consent in office. O: VSS, Unable to feel fundus d/t maternal body habitus. H/H 11.2/33.9. A: 29 y.o. s/p , stable for home. P: Discharge home with instructions. To schedule visit in 4 weeks. To schedule circumcision appointment in 1 week. Condition at discharge: Good Disposition: DC-01 TO HOME OR SELFCARE Plan - Provider Discharge Summary Activity: routine, no sex for 6 weeks, no heavy lifting 4 weeks, no strenuous exercise Diet: routine Instructions: routine Additional instructions: [] Smoking cessation referral if applicable(refer to patient education folder for contact #) [] Refer to [facility] Booklet Call your doctor immediately for: * Fever > 100.5 * Heavy vaginal bleeding ( >1 pad per hour) * Severe persistent headache * Shortness of breath * Reddened, hot, painful area to leg or breast * Drainage or odor from incision. * Keep incision clean and dry at all times and follow doctor's instructions regarding bathing/showering - Follow up plan Follow up: MILTON ARNOLD MD [Primary Care Provider] - 7 Days (Congulatulations!!! Please schedule your son's circumcision appointment in 1 week with the office. Please schedule a visit in 4 weeks. You have been prescribed EMLA cream. Please do not use it at home but bring it with you to your son's circumcision appointmnt. If you have any questions or concerns, please do not hesitate to call the office. )
[2020-02-12] MEDS: DOCUSATE SODIUM 100 MG CAP PO SCH (09:19)
[2020-02-12] MEDS: PRENATAL VIT27-FE FUMARATE-FOLIC ACID VIT TAB PO SCH (09:20)
[2020-02-12 17:06] VITALS: BP 140/78
== END 2020-02-12 16:50 | disposition home or self-care (01) | DRG 775 ==
LOC: TRG 17:30 → APU 17:30 → OBSVTOIN 18:05 → LD 18:05 → TRG 18:05 → APU 19:18 → TRG 19:18 → OB 02-11 03:15
PROVIDERS: ADMIT Obstetrics & Gynecology; ATTEND Obstetrics & Gynecology
PROC: 10E0XZZ Delivery of Products of Conception, External Approach (ICD-10-PCS; principal; 2020-02-11)
PROC: 0KQM0ZZ Repair Perineum Muscle, Open Approach (ICD-10-PCS; 2020-02-11)
PROC: 3E033VJ Introduction of Other Hormone into Peripheral Vein, Percutaneous Approach (ICD-10-PCS; 2020-02-11)
DX: O62.3 Precipitate labor (principal); O48.0 Post-term pregnancy; O70.1 Second degree perineal laceration during delivery; Z3A.40 40 weeks gestation of pregnancy; Z37.0 Single live birth
CPT/HCPCS: 36415; 85014; 85018; 85027; 86592; 86762; 86850; 86900; 86901; 87806; G0378; J0595; J2590; J3490; J7120